=== PATIENT | female | born 1965 | race Caucasian/White ===

== ENCOUNTER 2017-08-14 08:05 | Emergency (ER) | payer MEDICAID ==
[~2017-08-14 08:05] MED LIST: LEVO750T46 PO; NO HOME MEDS; PRED10TA PO
[2017-08-14] MEDS ORDERED: LEVO500T89 PO (18:21)
[2017-08-14] MEDS ORDERED: PRED10TA PO (18:21)
== END 2017-08-14 09:30 | disposition left against medical advice (07) ==
LOC: ER 08:05
DX: Z00.8 Encounter for other general examination (principal); Z53.21 Procedure and treatment not carried out due to patient leaving prior to being seen by health care provider

== ENCOUNTER 2017-09-03 22:19 | Emergency (ER) | payer MEDICAID ==
[~2017-09-03] VITALS: Ht 157.5 cm; Wt 52.0 kg
[2017-09-03 23:31] VITALS: BP 133/83
[2017-09-03] MEDS ORDERED: AZIT250T PO (23:33)
[2017-09-03] MEDS ORDERED: ALBU8.5H8 IH (23:33)
[2017-09-03] MEDS ORDERED: azithromycin 250mg tablet PO ONE (23:35)
== END 2017-09-03 23:54 | disposition home or self-care (01) ==
LOC: ER 22:20
DX: J40 Bronchitis, not specified as acute or chronic (principal); I10 Essential (primary) hypertension; J44.9 Chronic obstructive pulmonary disease, unspecified; K21.9 Gastro-esophageal reflux disease without esophagitis; F17.210 Nicotine dependence, cigarettes, uncomplicated; F12.10 Cannabis abuse, uncomplicated; Z79.899 Other long term (current) drug therapy; Z59.0 Homelessness
CPT/HCPCS: 71045; 93005; 99284

== ENCOUNTER 2017-09-16 03:06 | Emergency (ER) | payer MEDICAID ==
[~2017-09-16] VITALS: Ht 154.9 cm; Wt 50.0 kg
[~2017-09-16 03:06] MED LIST changes: +ALBU8.5H8 IH; +AZIT250T PO
[2017-09-16 03:07] VITALS: BP 91/56
[2017-09-16] MEDS ORDERED: HYDROcodone/acetaminophen 10/325mg tab PO ONE (03:30)
[2017-09-16] MEDS ORDERED: ibuprofen tablet 400 MG TABLET PO ONE (03:50)
== END 2017-09-16 04:15 | disposition home or self-care (01) ==
LOC: ER 03:06
DX: S50.02XA Contusion of left elbow, initial encounter (principal); F10.129 Alcohol abuse with intoxication, unspecified; M54.9 Dorsalgia, unspecified; I10 Essential (primary) hypertension; J44.9 Chronic obstructive pulmonary disease, unspecified; K21.9 Gastro-esophageal reflux disease without esophagitis; Z86.14 Personal history of Methicillin resistant Staphylococcus aureus infection; Z98.890 Other specified postprocedural states; F12.10 Cannabis abuse, uncomplicated; F15.10 Other stimulant abuse, uncomplicated; Z79.899 Other long term (current) drug therapy; Z59.0 Homelessness; W18.30XA Fall on same level, unspecified, initial encounter; Y93.89 Activity, other specified; Y92.009 Unspecified place in unspecified non-institutional (private) residence as the place of occurrence of the external cause; Y99.8 Other external cause status
CPT/HCPCS: 73080; 99284; A4565

== ENCOUNTER 2017-10-08 10:20 | Emergency (ER) | payer MEDICAID ==
[~2017-10-08] VITALS: Ht 157.5 cm; Wt 50.0 kg
[2017-10-08 12:21] VITALS: BP 126/79
== END 2017-10-08 11:57 | disposition home or self-care (01) ==
LOC: ER 10:21
DX: S09.90XA Unspecified injury of head, initial encounter (principal); F12.10 Cannabis abuse, uncomplicated; F15.10 Other stimulant abuse, uncomplicated; J44.9 Chronic obstructive pulmonary disease, unspecified; K21.9 Gastro-esophageal reflux disease without esophagitis; I10 Essential (primary) hypertension; F03.90 Unspecified dementia, unspecified severity, without behavioral disturbance, psychotic disturbance, mood disturbance, and anxiety; Z59.0 Homelessness; Z98.890 Other specified postprocedural states; W22.8XXA Striking against or struck by other objects, initial encounter; Y93.89 Activity, other specified; Y92.89 Other specified places as the place of occurrence of the external cause; Y99.8 Other external cause status
CPT/HCPCS: 70450; 99284; A6446

== ENCOUNTER 2018-02-22 17:49 | Emergency (ER) | payer MEDICAID ==
[~2018-02-22] VITALS: Ht 162.6 cm; Wt 49.0 kg
[2018-02-22] MEDS ORDERED: normal saline 1000ML IV soln IVB ONE (18:00)
[2018-02-22 18:18] LABS: BASOPHILS % (AUTO) 0.6 % (0-1); EOSINOPHILS # (AUTO) 0.1 X10'3 (0-0.9); EOSINOPHILS % (AUTO) 1.3 % (0-6); HEMATOCRIT 29.8 % (35.0-45.0); HEMOGLOBIN 10.2 g/dl (12.0-16.0); LYMPHOCYTES # (AUTO) 2.1 X10'3 (1.1-4.8); LYMPHOCYTES % (AUTO) 45.6 % (21-51); MEAN CORPUSCULAR HGB CONC 34.4 % (33.0-36.5); MEAN PLATELET VOLUME 6.5 FL (7.4-10.4); MONOCYTES # (AUTO) 0.5 X10'3 (0-0.9); NEUTROPHILS # (AUTO) 1.9 X10'3 (1.8-7.7); NEUTROPHILS % (AUTO) 42.5 % (42-75); PLATELET COUNT 168 X10'3 (140-440); RED BLOOD COUNT 2.92 X10'6 (4.20-5.60); RED CELL DISTRIBUTION WIDTH 13.3 % (11.5-14.5); WHITE BLOOD COUNT 4.6 X10'3 (4.5-11.0)
[2018-02-22 18:20] LABS: URINE HCG NEGATIVE (NEG)
[2018-02-22 18:25] LABS: CLARITY,URINE CLEAR (Clear); COLOR,URINE YELLOW (Yellow); GLUCOSE, URINE NEGATIVE (Neg); KETONES,URINE TRACE mg/dl (Neg); LEUKOCYTE ESTERASE ,URINE NEGATIVE (Neg); NITRITES, URINE NEGATIVE (Neg); OCCULT BLOOD,URINE NEGATIVE (Neg); PROTEIN,URINE NEGATIVE (Neg); UROBILINOGEN,URINE 0.2 E.U/dL (0.2-1.0)
[2018-02-22 18:32] LABS: ALANINE AMINOTRANSFERASE 68 U/L (12-78); ALBUMIN 2.3 G/DL (3.4-5.0); ALBUMIN/GLOBULIN RATIO 0.8 (1.1-1.5); ALKALINE PHOSPHATASE 97 IU/L (46-116); ANION GAP 11 (8-16); ASPARTATE AMINO TRANSFERASE 107 U/L (10-37); BILIRUBIN,TOTAL 0.2 MG/DL (0.1-1.0); BLOOD UREA NITROGEN 8 MG/DL (7-18); CALCIUM 7.1 MG/DL (8.5-10.1); CHLORIDE 105 MMOL/L (99-107); CREATININE 0.42 MG/DL (0.40-0.90); GLUCOSE 100 MG/DL (70-104); POTASSIUM 3.3 MMOL/L (3.5-5.1); SODIUM 141 MMOL/L (135-145); TOTAL CARBON DIOXIDE 25.3 MMOL/L (24-32); TOTAL PROTEIN 5.2 G/DL (6.4-8.2); eGFR > 90 ML/MIN
[2018-02-22 18:33] LABS: URINE AMPHETAMINE SCREEN POSITIVE (Neg); URINE BARBITUATE SCREEN NEGATIVE (Neg); URINE BENZODIAZEPINES SCREEN NEGATIVE (Neg); URINE CANNABINOID SCREEN NEGATIVE (Neg); URINE COCAINE SCREEN NEGATIVE (Neg); URINE METHADONE SCREEN NEGATIVE (Neg); URINE OPIATE SCREEN NEGATIVE (Neg); URINE PHENCYCLIDINE SCREEN NEGATIVE (Neg)
[2018-02-22 18:41] LABS: ACETAMINOPHEN < 2.0 UG/ML (10-30); ETHANOL 0.164 GM/DL (0.0-0.010)
[2018-02-22 18:42] LABS: UA COLLECTION TYPE OTHER
[2018-02-22 18:44] VITALS: BP 131/84
[2018-02-22] MEDS ORDERED: DOPamine 400mg/D5W 250ml 250 ML IV SCH (20:20)
== END 2018-02-22 22:07 | disposition home or self-care (01) ==
LOC: ER 17:50
DX: F10.920 Alcohol use, unspecified with intoxication, uncomplicated (principal); R41.82 Altered mental status, unspecified; R73.9 Hyperglycemia, unspecified; F15.10 Other stimulant abuse, uncomplicated; I10 Essential (primary) hypertension; J44.9 Chronic obstructive pulmonary disease, unspecified; F12.90 Cannabis use, unspecified, uncomplicated; F15.90 Other stimulant use, unspecified, uncomplicated; K21.9 Gastro-esophageal reflux disease without esophagitis; Z98.51 Tubal ligation status; Z59.0 Homelessness
CPT/HCPCS: 36415; 70450; 71045; 80053; 80305; 80320; 80329; 81003; 81025; 83930; 84439; 84443; 85025; 93005; 96360; 99285; J7030

== ENCOUNTER 2018-06-29 10:06 | Emergency (ER) | payer MEDICAID ==
[~2018-06-29] VITALS: Ht 160 cm; Wt 47.7 kg
[2018-06-29 10:31] VITALS: BP 157/108
== END 2018-06-29 11:23 | disposition left against medical advice (07) ==
LOC: ER 10:07
DX: R21 Rash and other nonspecific skin eruption (principal); Z53.21 Procedure and treatment not carried out due to patient leaving prior to being seen by health care provider

== ENCOUNTER 2019-01-15 00:15 | Emergency (ER) | payer MEDICAID ==
[~2019-01-15] VITALS: Ht 157.5 cm; Wt 43.8 kg
[~2019-01-15 00:15] MED LIST changes: +DEC4T PO; +LORA10TA65 PO
[2019-01-15 01:15] LABS: HEMOGLOBIN 14.1 g/dl (12.0-16.0); MEAN CORPUSCULAR HEMOGLOBIN 35.5 PG (27.0-31.0); WHITE BLOOD COUNT 6.2 X10'3 (4.5-11.0)
[2019-01-15 01:15] LABS: CLARITY,URINE SLIGHTLY CLOUDY (Clear); COLOR,URINE YELLOW (Yellow); GLUCOSE, URINE NEGATIVE (Neg); KETONES,URINE TRACE mg/dl (Neg); LEUKOCYTE ESTERASE ,URINE NEGATIVE (Neg); NITRITES, URINE NEGATIVE (Neg); OCCULT BLOOD,URINE NEGATIVE (Neg); PH,URINE 5.5 (4.8-8.0); PROTEIN,URINE TRACE mg/dl (Neg); UROBILINOGEN,URINE 0.2 E.U/dL (0.2-1.0)
[2019-01-15 01:17] LABS: UA COLLECTION TYPE CLN CATCH MIDSTREAM
[2019-01-15 01:17] LABS: BASOPHILS # (AUTO) 0.1 X10'3 (0-0.2); BASOPHILS % (AUTO) 0.8 % (0-1); EOSINOPHILS % (AUTO) 0.5 % (0-6); HEMATOCRIT 40.4 % (35.0-45.0); LYMPHOCYTES % (AUTO) 31.9 % (21-51); MEAN CORPUSCULAR HGB CONC 34.9 g/dL (33.0-36.5); MEAN PLATELET VOLUME 6.4 FL (7.4-10.4); MONOCYTES # (AUTO) 0.9 X10'3 (0-0.9); MONOCYTES % (AUTO) 14.5 % (2-12); NEUTROPHILS # (AUTO) 3.3 X10'3 (1.8-7.7); NEUTROPHILS % (AUTO) 52.3 % (42-75); PLATELET COUNT 308 X10'3 (140-440); RED BLOOD COUNT 3.96 X10'6 (4.20-5.60); RED CELL DISTRIBUTION WIDTH 13.2 % (11.5-14.5)
[2019-01-15 01:19] LABS: BACTERIA,URINE FEW /HPF (Neg); MUCUS STRANDS NONE SEEN /LPF (Neg); RBC,URINE NONE SEEN /HPF (0-2); SQUAMOUS EPITHELIAL CELL,UR MODERATE /LPF (FEW); WBC,URINE NONE SEEN /HPF (0-4)
[2019-01-15 01:25] LABS: ALANINE AMINOTRANSFERASE 60 U/L (12-78); ALBUMIN 3.7 G/DL (3.4-5.0); ALKALINE PHOSPHATASE 99 IU/L (46-116); ANION GAP 11 (8-16); ASPARTATE AMINO TRANSFERASE 58 U/L (10-37); BILIRUBIN,TOTAL 0.4 MG/DL (0.1-1.0); BLOOD UREA NITROGEN 16 MG/DL (7-18); BUN/CREATININE RATIO 16.8 (6.6-38.0); CALCIUM 9.2 MG/DL (8.5-10.1); CHLORIDE 100 MMOL/L (99-107); CREATININE 0.95 MG/DL (0.40-0.90); GLUCOSE 116 MG/DL (70-104); SODIUM 139 MMOL/L (135-145); TOTAL CARBON DIOXIDE 28.5 MMOL/L (24-32); TOTAL PROTEIN 7.4 G/DL (6.4-8.2); eGFR 61 ML/MIN
[2019-01-15] MEDS ORDERED: potassium Cl 20 mEq SR tablet PO STA (01:27)
[2019-01-15 01:28] LABS: POTASSIUM 2.9 MMOL/L (3.5-5.1)
[2019-01-15] MEDS ORDERED: ondansetron 4mg rapidly disintigrating tab PO ONE (01:30)
[2019-01-15] MEDS ORDERED: ketorolac trometh inj. 60 MG/2 ML VIAL IM ONE (01:30)
[2019-01-15 01:34] LABS: ETHANOL 0.105 GM/DL (0.0-0.010)
[2019-01-15] MEDS ORDERED: ketorolac trometh. 30mg/ml inj. IM ONE (01:35)
[2019-01-15] MEDS ORDERED: POTA20TA19 PO (01:46)
[2019-01-15 01:56] LABS: URINE AMPHETAMINE SCREEN POSITIVE (Neg); URINE BARBITUATE SCREEN NEGATIVE (Neg); URINE BENZODIAZEPINES SCREEN NEGATIVE (Neg); URINE CANNABINOID SCREEN NEGATIVE (Neg); URINE COCAINE SCREEN NEGATIVE (Neg); URINE METHADONE SCREEN NEGATIVE (Neg); URINE OPIATE SCREEN NEGATIVE (Neg); URINE PHENCYCLIDINE SCREEN NEGATIVE (Neg)
[2019-01-15 04:22] VITALS: BP 166/90
== END 2019-01-15 04:26 | disposition home or self-care (01) ==
LOC: ER 00:16
DX: R10.84 Generalized abdominal pain (principal); E87.6 Hypokalemia; I10 Essential (primary) hypertension; J44.9 Chronic obstructive pulmonary disease, unspecified; K21.9 Gastro-esophageal reflux disease without esophagitis; F12.90 Cannabis use, unspecified, uncomplicated; F15.90 Other stimulant use, unspecified, uncomplicated; Z87.11 Personal history of peptic ulcer disease; Z98.890 Other specified postprocedural states; Z98.51 Tubal ligation status; Z59.0 Homelessness; Z79.899 Other long term (current) drug therapy
CPT/HCPCS: 36415; 74176; 80053; 80305; 80320; 81001; 85025; 85610; 96372; 99284; J1885; J2405

== ENCOUNTER 2019-11-20 22:26 | Emergency (ER) | payer MEDICAID ==
[~2019-11-20] VITALS: Ht 157.5 cm; Wt 52.3 kg
[2019-11-20] MEDS ORDERED: normal saline 1000ML IV soln IVB ONE (22:35)
[2019-11-20] MEDS ORDERED: ondansetron/PF 4mg/2ml inj IV ONE (22:35)
[2019-11-20] MEDS ORDERED: morphine 4 MG/ML inj SYRINge IV PRN (22:35)
[2019-11-20 23:04] LABS: BASOPHILS # (AUTO) 0.1 X10'3 (0-0.2); EOSINOPHILS # (AUTO) 0.1 X10'3 (0-0.9); EOSINOPHILS % (AUTO) 1.3 % (0-6); HEMATOCRIT 38.3 % (35.0-45.0); HEMOGLOBIN 12.7 g/dl (12.0-16.0); LYMPHOCYTES # (AUTO) 2.7 X10'3 (1.1-4.8); LYMPHOCYTES % (AUTO) 43.4 % (21-51); MEAN CORPUSCULAR HEMOGLOBIN 31.6 PG (27.0-31.0); MEAN CORPUSCULAR HGB CONC 33.1 g/dL (33.0-36.5); MEAN CORPUSCULAR VOLUME 95.4 FL (78-98); MEAN PLATELET VOLUME 6.4 FL (7.4-10.4); MONOCYTES # (AUTO) 0.4 X10'3 (0-0.9); MONOCYTES % (AUTO) 6.3 % (2-12); NEUTROPHILS # (AUTO) 2.9 X10'3 (1.8-7.7); PLATELET COUNT 431 X10'3 (140-440); RED BLOOD COUNT 4.02 X10'6 (4.20-5.60); RED CELL DISTRIBUTION WIDTH 15.1 % (11.5-14.5); WHITE BLOOD COUNT 6.1 X10'3 (4.5-11.0)
[2019-11-20 23:11] LABS: ALANINE AMINOTRANSFERASE 24 U/L (12-78); ALBUMIN 2.5 G/DL (3.4-5.0); ALBUMIN/GLOBULIN RATIO 0.6 (1.1-1.5); ALKALINE PHOSPHATASE 97 IU/L (46-116); ANION GAP 9 (8-16); ASPARTATE AMINO TRANSFERASE 23 U/L (10-37); BILIRUBIN,TOTAL 0.2 MG/DL (0.1-1.0); BLOOD UREA NITROGEN 9 MG/DL (7-18); CALCIUM 11.2 MG/DL (8.5-10.1); CHLORIDE 108 MMOL/L (99-107); CREATININE 0.69 MG/DL (0.40-0.90); ETHANOL 0.103 GM/DL (0.0-0.010); GLUCOSE 88 MG/DL (70-104); LIPASE 119 U/L (73-393); POTASSIUM 3.4 MMOL/L (3.5-5.1); SODIUM 146 MMOL/L (135-145); TOTAL CARBON DIOXIDE 29.5 MMOL/L (24-32); TOTAL PROTEIN 6.9 G/DL (6.4-8.2); eGFR 88 ML/MIN
[2019-11-21 00:59] LABS: URINE AMPHETAMINE SCREEN POSITIVE (Neg); URINE BARBITUATE SCREEN NEGATIVE (Neg); URINE BENZODIAZEPINES SCREEN NEGATIVE (Neg); URINE CANNABINOID SCREEN POSITIVE (Neg); URINE COCAINE SCREEN NEGATIVE (Neg); URINE METHADONE SCREEN NEGATIVE (Neg); URINE OPIATE SCREEN POSITIVE (Neg); URINE PHENCYCLIDINE SCREEN NEGATIVE (Neg)
[2019-11-21 01:22] LABS: CLARITY,URINE SLIGHTLY CLOUDY (Clear); COLOR,URINE YELLOW (Yellow); GLUCOSE, URINE NEGATIVE (Neg); KETONES,URINE NEGATIVE (Neg); LEUKOCYTE ESTERASE ,URINE NEGATIVE (Neg); NITRITES, URINE NEGATIVE (Neg); OCCULT BLOOD,URINE NEGATIVE (Neg); PROTEIN,URINE NEGATIVE (Neg); UROBILINOGEN,URINE 0.2 E.U/dL (0.2-1.0)
[2019-11-21 01:33] LABS: MUCUS STRANDS FEW /LPF (Neg); RBC,URINE NONE SEEN /HPF (0-2); SQUAMOUS EPITHELIAL CELL,UR FEW /LPF (FEW); WBC,URINE 0-4 /HPF (0-4)
[2019-11-21 01:34] LABS: BACTERIA,URINE NONE SEEN /HPF (Neg)
[2019-11-21] MEDS ORDERED: HYDROcodone/acetaminophen 5mg/325mg tablet PO STA (01:59)
[2019-11-21 02:04] VITALS: BP 159/100
== END 2019-11-21 02:06 | disposition home or self-care (01) ==
LOC: ER 22:27
DX: R10.11 Right upper quadrant pain (principal); R11.2 Nausea with vomiting, unspecified; R19.7 Diarrhea, unspecified; F15.10 Other stimulant abuse, uncomplicated; F10.920 Alcohol use, unspecified with intoxication, uncomplicated; I10 Essential (primary) hypertension; J45.909 Unspecified asthma, uncomplicated; J44.9 Chronic obstructive pulmonary disease, unspecified; K21.9 Gastro-esophageal reflux disease without esophagitis; F32.9 Major depressive disorder, single episode, unspecified; F12.90 Cannabis use, unspecified, uncomplicated; Z86.19 Personal history of other infectious and parasitic diseases; Z86.69 Personal history of other diseases of the nervous system and sense organs; Z87.01 Personal history of pneumonia (recurrent); Z87.11 Personal history of peptic ulcer disease; Z86.14 Personal history of Methicillin resistant Staphylococcus aureus infection; Z98.51 Tubal ligation status; Z72.89 Other problems related to lifestyle; Z59.0 Homelessness; Z79.2 Long term (current) use of antibiotics; Z79.899 Other long term (current) drug therapy
CPT/HCPCS: 36415; 74176; 80053; 80305; 80320; 81001; 83605; 83690; 85025; 96361; 96374; 96375; 99284; J2270; J2405; J7030

== ENCOUNTER 2020-05-20 09:26 | Emergency (ER) | payer MEDICAID ==
[~2020-05-20] VITALS: Ht 157.5 cm; Wt 50.0 kg
[2020-05-20 09:31] VITALS: BP 176/100
[2020-05-20] MEDS ORDERED: acetaminophen 325mg tablet PO ONE (11:45)
== END 2020-05-20 12:15 | disposition home or self-care (01) ==
LOC: ER 09:26
DX: S83.92XA Sprain of unspecified site of left knee, initial encounter (principal); M25.562 Pain in left knee; X58.XXXA Exposure to other specified factors, initial encounter; Y93.89 Activity, other specified; Y92.89 Other specified places as the place of occurrence of the external cause; Y99.8 Other external cause status
CPT/HCPCS: 73564; 99283

== ENCOUNTER 2020-07-02 08:23 | Emergency (ER) | payer MEDICAID ==
[~2020-07-02] VITALS: Ht 157.5 cm; Wt 50.0 kg
[2020-07-02] MEDS ORDERED: labetalol 20mg/4ml (5mg/ml) syringe IV ONE (08:45)
[2020-07-02] MEDS ORDERED: normal saline 1000ML IV soln IVB ONE (08:45)
[2020-07-02] MEDS ORDERED: ondansetron/PF 4mg/2ml inj IV ONE (08:45)
[2020-07-02 09:06] LABS: CLARITY,URINE SLIGHTLY CLOUDY (Clear); COLOR,URINE STRAW (Yellow); GLUCOSE, URINE NEGATIVE (Neg); KETONES,URINE NEGATIVE (Neg); LEUKOCYTE ESTERASE ,URINE SMALL (Neg); NITRITES, URINE NEGATIVE (Neg); OCCULT BLOOD,URINE NEGATIVE (Neg); PH,URINE 7.5 (4.8-8.0); PROTEIN,URINE NEGATIVE (Neg); URINE HCG NEGATIVE (NEG); UROBILINOGEN,URINE 0.2 E.U/dL (0.2-1.0)
[2020-07-02 09:11] LABS: UA COLLECTION TYPE CLN CATCH MIDSTREAM
[2020-07-02 09:16] LABS: SQUAMOUS EPITHELIAL CELL,UR FEW /LPF (FEW)
--- NOTE | 2020-07-02 09:16 | NUR ---
4 iv attempts dimitrios solitario 2 iv attempts, marilee oden trying 2nd iv attempt with ultrasound.
[2020-07-02 09:18] LABS: BACTERIA,URINE FEW /HPF (Neg); RBC,URINE NONE SEEN /HPF (0-2); WBC,URINE 0-4 /HPF (0-4)
[2020-07-02 09:19] LABS: URINE AMPHETAMINE SCREEN POSITIVE (Neg); URINE BARBITUATE SCREEN NEGATIVE (Neg); URINE BENZODIAZEPINES SCREEN NEGATIVE (Neg); URINE CANNABINOID SCREEN NEGATIVE (Neg); URINE COCAINE SCREEN NEGATIVE (Neg); URINE METHADONE SCREEN NEGATIVE (Neg); URINE OPIATE SCREEN NEGATIVE (Neg); URINE PHENCYCLIDINE SCREEN NEGATIVE (Neg)
--- NOTE | 2020-07-02 09:20 | NUR ---
pt jerked while marilee oden was placing iv, got blood return but no placement.
[2020-07-02 09:25] LABS: ALANINE AMINOTRANSFERASE 21 U/L (12-78); ALBUMIN 3.4 G/DL (3.4-5.0); ALBUMIN/GLOBULIN RATIO 0.9 (1.1-1.5); ALKALINE PHOSPHATASE 88 IU/L (46-116); ANION GAP 7 (8-16); ASPARTATE AMINO TRANSFERASE 26 U/L (10-37); BILIRUBIN,TOTAL 0.1 MG/DL (0.1-1.0); BLOOD UREA NITROGEN 13 MG/DL (7-18); BUN/CREATININE RATIO 18.6 (6.6-38.0); CALCIUM 9.4 MG/DL (8.5-10.1); CHLORIDE 103 MMOL/L (99-107); GLUCOSE 88 MG/DL (70-104); LIPASE 210 U/L (73-393); POTASSIUM 4.3 MMOL/L (3.5-5.1); SODIUM 141 MMOL/L (135-145); TOTAL CARBON DIOXIDE 31.1 MMOL/L (24-32); eGFR 87 ML/MIN
[2020-07-02] MEDS: morphine 4 MG/ML inj SYRINge IV PRN ×2 (09:33→10:03)
--- NOTE | 2020-07-02 09:39 | NUR ---
PT DENIES USING METH FOR YEARS.
[2020-07-02 09:44] LABS: BASOPHILS # (AUTO) 0.1 X10'3 (0-0.2); BASOPHILS % (AUTO) 0.8 % (0-1); EOSINOPHILS # (AUTO) 0.1 X10'3 (0-0.9); EOSINOPHILS % (AUTO) 1.4 % (0-6); HEMATOCRIT 40.1 % (35.0-45.0); HEMOGLOBIN 13.5 g/dl (12.0-16.0); LYMPHOCYTES # (AUTO) 2.1 X10'3 (1.1-4.8); LYMPHOCYTES % (AUTO) 25.1 % (21-51); MEAN CORPUSCULAR HGB CONC 33.8 g/dL (33.0-36.5); MEAN CORPUSCULAR VOLUME 97.6 FL (78-98); MEAN PLATELET VOLUME 6.6 FL (7.4-10.4); MONOCYTES # (AUTO) 0.7 X10'3 (0-0.9); MONOCYTES % (AUTO) 9.1 % (2-12); NEUTROPHILS # (AUTO) 5.2 X10'3 (1.8-7.7); NEUTROPHILS % (AUTO) 63.6 % (42-75); PLATELET COUNT 424 X10'3 (140-440); RED CELL DISTRIBUTION WIDTH 14.2 % (11.5-14.5); WHITE BLOOD COUNT 8.2 X10'3 (4.5-11.0)
[2020-07-02] MEDS ORDERED: SUCR1TAB34 PO (11:20)
[2020-07-02 11:40] VITALS: BP 121/74
== END 2020-07-02 11:42 | disposition home or self-care (01) ==
LOC: ER 08:24
DX: K59.09 Other constipation (principal); K59.00 Constipation, unspecified; R10.10 Upper abdominal pain, unspecified; F03.90 Unspecified dementia, unspecified severity, without behavioral disturbance, psychotic disturbance, mood disturbance, and anxiety; F12.90 Cannabis use, unspecified, uncomplicated; F15.90 Other stimulant use, unspecified, uncomplicated; I10 Essential (primary) hypertension; J44.9 Chronic obstructive pulmonary disease, unspecified; K21.9 Gastro-esophageal reflux disease without esophagitis; Z87.11 Personal history of peptic ulcer disease; Z86.14 Personal history of Methicillin resistant Staphylococcus aureus infection; Z87.01 Personal history of pneumonia (recurrent); Z98.51 Tubal ligation status; Z98.891 History of uterine scar from previous surgery; Z59.0 Homelessness; Z86.69 Personal history of other diseases of the nervous system and sense organs; Z79.2 Long term (current) use of antibiotics; Z79.899 Other long term (current) drug therapy
CPT/HCPCS: 36415; 71045; 74176; 80053; 80305; 81001; 81025; 83690; 85025; 87088; 96361; 96374; 96375; 99285; J2270; J2405; J7030; 96376; J3490

== ENCOUNTER 2020-10-05 21:01 | Inpatient (IN) | payer MEDICAID ==
[~2020-10-05] VITALS: Ht 157.5 cm; Wt 50.0 kg
[~2020-10-05 21:01] MED LIST changes: +SUCR1TAB34 PO
[2020-10-05 21:25] LABS: BASOPHILS % (AUTO) 0.1 % (0-1); EOSINOPHILS % (AUTO) 0.2 % (0-6); HEMATOCRIT 37.1 % (35.0-45.0); HEMOGLOBIN 12.6 g/dl (12.0-16.0); LYMPHOCYTES # (AUTO) 1.3 X10'3 (1.1-4.8); LYMPHOCYTES % (AUTO) 6.9 % (21-51); MEAN CORPUSCULAR HEMOGLOBIN 33.3 PG (27.0-31.0); MEAN CORPUSCULAR HGB CONC 33.9 g/dL (33.0-36.5); MEAN CORPUSCULAR VOLUME 98.2 FL (78-98); MEAN PLATELET VOLUME 6.3 FL (7.4-10.4); MONOCYTES # (AUTO) 1.6 X10'3 (0-0.9); MONOCYTES % (AUTO) 8.9 % (2-12); NEUTROPHILS # (AUTO) 15.5 X10'3 (1.8-7.7); NEUTROPHILS % (AUTO) 83.9 % (42-75); PLATELET COUNT 305 X10'3 (140-440); RED BLOOD COUNT 3.78 X10'6 (4.20-5.60); RED CELL DISTRIBUTION WIDTH 13.4 % (11.5-14.5); WHITE BLOOD COUNT 18.5 X10'3 (4.5-11.0)
[2020-10-05 21:36] LABS: ALANINE AMINOTRANSFERASE 18 U/L (12-78); ALBUMIN 2.7 G/DL (3.4-5.0); ALBUMIN/GLOBULIN RATIO 0.8 (1.1-1.5); ALKALINE PHOSPHATASE 87 IU/L (46-116); ANION GAP 7 (8-16); ASPARTATE AMINO TRANSFERASE 21 U/L (10-37); BILIRUBIN,TOTAL 0.8 MG/DL (0.1-1.0); BLOOD UREA NITROGEN 16 MG/DL (7-18); BUN/CREATININE RATIO 25.8 (6.6-38.0); CALCIUM 8.9 MG/DL (8.5-10.1); CHLORIDE 96 MMOL/L (99-107); CREATININE 0.62 MG/DL (0.40-0.90); GLUCOSE 95 MG/DL (70-104); POTASSIUM 3.4 MMOL/L (3.5-5.1); SODIUM 130 MMOL/L (135-145); TOTAL CARBON DIOXIDE 26.6 MMOL/L (24-32); TOTAL PROTEIN 6.2 G/DL (6.4-8.2); eGFR > 90 ML/MIN
[2020-10-05] MEDS ORDERED: CefTRIAXone/D5W-Rocephin 1gm 50 ML IV ONE (22:20)
[2020-10-05] MEDS ORDERED: doxycycline inj 100 MG in normal saline 100ml IV soln 100 ML IV ONE (22:23)
[2020-10-05] MEDS ORDERED: oxyCODONE/APAP 5-325mg tablet PO ONE (22:25)
[2020-10-05] MEDS ORDERED: iohexol 350MG/ML 100ml bottle IV ONE (22:27)
[2020-10-05] MEDS ORDERED: potassium Cl 40MEQ/1/2NS 520ml 520 ML IV PRN ×2 (23:40)
[2020-10-05] MEDS ORDERED: mag hydrox/Alum hydrox/simeth 30ml oral suspension PO PRN (23:40)
[2020-10-05] MEDS ORDERED: potassium Cl 20 mEq SR tablet PO PRN (23:40)
[2020-10-05] MEDS ORDERED: magnesium hydroxide 30ml (MOM) UD suspension PO PRN (23:40)
[2020-10-05] MEDS ORDERED: ondansetron/PF 4mg/2ml inj IV PRN (23:40)
[2020-10-05] MEDS ORDERED: acetaminophen 325mg tablet PO PRN (23:40)
[2020-10-06] MEDS ORDERED: normal saline 1000ml 1,000 ML IV ONE ×2 (00:10)
--- NOTE | 2020-10-06 01:45 | NUR ---
received report from ED Nurse on pt. at approx. 0115. patient arrived on unit at 0135 in a wheelchair escorted by [employer] wearing personal clothing as well as a purse. Chun Wyatt RN
[2020-10-06 01:57] LABS: BASOPHILS # (AUTO) 0.1 X10'3 (0-0.2); BASOPHILS % (AUTO) 0.3 % (0-1); EOSINOPHILS % (AUTO) 0.1 % (0-6); HEMATOCRIT 39.1 % (35.0-45.0); HEMOGLOBIN 13.3 g/dl (12.0-16.0); LYMPHOCYTES # (AUTO) 1.4 X10'3 (1.1-4.8); LYMPHOCYTES % (AUTO) 6.8 % (21-51); MEAN CORPUSCULAR HEMOGLOBIN 33.1 PG (27.0-31.0); MEAN CORPUSCULAR VOLUME 97.4 FL (78-98); MEAN PLATELET VOLUME 6.5 FL (7.4-10.4); MONOCYTES # (AUTO) 1.2 X10'3 (0-0.9); MONOCYTES % (AUTO) 5.5 % (2-12); NEUTROPHILS # (AUTO) 18.4 X10'3 (1.8-7.7); NEUTROPHILS % (AUTO) 87.3 % (42-75); PLATELET COUNT 333 X10'3 (140-440); RED BLOOD COUNT 4.01 X10'6 (4.20-5.60); RED CELL DISTRIBUTION WIDTH 13.6 % (11.5-14.5)
[2020-10-06 02:07] LABS: ALANINE AMINOTRANSFERASE 18 U/L (12-78); ALBUMIN 2.8 G/DL (3.4-5.0); ALBUMIN/GLOBULIN RATIO 0.8 (1.1-1.5); ALKALINE PHOSPHATASE 100 IU/L (46-116); ANION GAP 10 (8-16); ASPARTATE AMINO TRANSFERASE 20 U/L (10-37); BILIRUBIN,TOTAL 0.6 MG/DL (0.1-1.0); BLOOD UREA NITROGEN 16 MG/DL (7-18); BUN/CREATININE RATIO 26.2 (6.6-38.0); CALCIUM 8.8 MG/DL (8.5-10.1); CHLORIDE 100 MMOL/L (99-107); CREATININE 0.61 MG/DL (0.40-0.90); GLUCOSE 106 MG/DL (70-104); POTASSIUM 3.2 MMOL/L (3.5-5.1); SODIUM 136 MMOL/L (135-145); TOTAL CARBON DIOXIDE 26.2 MMOL/L (24-32); TOTAL PROTEIN 6.5 G/DL (6.4-8.2); eGFR > 90 ML/MIN
[2020-10-06] MEDS: HYDROcodone/acetaminophen 5mg/325mg tablet PO PRN ×5 (02:41→22:12)
[2020-10-06] MEDS: normal saline 1000ml 1,000 ML IV SCH ×2 (02:43→09:40)
[2020-10-06] MEDS: potassium Cl 20 mEq SR tablet PO PRN ×3 (02:52→18:07)
[2020-10-06] MEDS: clindamycin 300mg/D5W 50mL 50 ML IV SCH ×4 (03:02→21:02)
[2020-10-06 03:26] LABS: TOTAL CELLS COUNTED 100
[2020-10-06 03:27] LABS: PLATELET ESTIMATE NORMAL; SCHISTOCYTES FEW
--- NOTE | 2020-10-06 06:37 | NUR ---
I agree with ARELIS Mccollum assessments, documentation, med pass, and report given. Report was given to Brian Mendez RN
--- NOTE | 2020-10-06 06:46 | NUR ---
Patient in room [facility]. I have received report from ARELIS Ordaz and had the opportunity to ask questions and assume patient care.
[2020-10-06 07:00] VITALS: BP 133/72
[2020-10-06] MEDS: heparin, porcine 5000 units/ml vial SQ SCH ×2 (07:14→21:04)
[2020-10-06] MEDS ORDERED: NO HOME MEDS (07:44)
[2020-10-06] MEDS: K and/or MAG REPLACEMENT MC SCH ×2 (08:00→20:00)
[2020-10-06] MEDS: CefTRIAXone/D5W-Rocephin 1gm 50 ML IV SCH (08:04)
--- NOTE | 2020-10-06 11:50 | NUR ---
Notified by service unit operator oil well Candice that patient states she "suppose to take her pills for her cirrhosis of liver." No home meds reported on med rec. Went to speak to patient and patient reports she takes medication at home for her cirrhosis. She reports that she was "here like 3 months ago and you guys sent me home with it. I don't have it with me but it's these big pills I take with an empty stomach for before I eat." With patient's permission to access most recent hospital visit it show that patient was here for abd pain in Jun and was discharged in the ER with Sucralfate (Carafate) 1 Gm Tablet 1 TAB PO ACHS, #60 TAB 0 Refills Prov: MAYCOL DUTTON MD. Patient is notified that was the only medication ordered when she was dc'd from the ER her previous visit. Patient reports that she was "suppose to follow up with [facility]" but didn't." Let patient know that I will update Dr. Dewitt with information regarding this.
[2020-10-06 12:00] VITALS: BP 171/87
--- NOTE | 2020-10-06 12:22 | NUR ---
Dr Dewitt PAGER ID: [phone] MESSAGE: [id number]- Gina Gomez- says she takes meds for liver cirrhosis that was ordered her last hosp. visit. She had ER visit for abd pain in Jun and dc'd from ER with Sucralfate 1 Gm TAB PO ACHS, #60 TAB 0 Refills. Do you want ordered? Meme [id number] Cuong
--- NOTE | 2020-10-06 15:01 | NUR ---
Malnutrition consult: Pt unsure of wt loss though reports decreased appetite per malnutrition risk screen with RN. Pt currently on a regular diet, pending documentation of PO intake. Patient's current documented wt is stable with wt hx in EMR. Pt with no documented significant decrease in muscle strength or edema. Pt appears well developed well nourished per ED report. Pt currently lacks a minimum of two criteria for malnutrition. Will continue to follow and further monitor qualifying criteria for malnutrition. Addendum: 10/06/20 at [address] Amended: Links added.
[2020-10-06] MEDS: azithromycin/NS 500mg/250ml 250 ML IV SCH (16:10)
[2020-10-06] MEDS: morphine 2 MG/ML inj. syringe IV PRN (16:26)
--- NOTE | 2020-10-06 18:38 | NUR ---
Problems reprioritized. Patient report given, questions answered & plan of care reviewed with ARELIS Brush.
[2020-10-06 19:00] VITALS: BP 127/70
[2020-10-06] MEDS: lactobacillus rhamnosus 10,000 MMU CELLS/CAPSULE PO SCH (21:02)
[2020-10-07] VITALS: BP 128/70
[2020-10-07] MEDS: clindamycin 300mg/D5W 50mL 50 ML IV SCH ×4 (01:39→19:18)
[2020-10-07] MEDS: normal saline 1000ml 1,000 ML IV SCH (01:42)
--- NOTE | 2020-10-07 02:00 | NUR ---
Patient in room [facility]. I have received report from Trudi INFANTE and had the opportunity to ask questions and assume patient care.
--- NOTE | 2020-10-07 02:40 | NUR ---
I have reviewed and agree with the assessment preformed by Trudi INFANTE
[2020-10-07] MEDS: HYDROcodone/acetaminophen 5mg/325mg tablet PO PRN ×4 (02:46→19:19)
[2020-10-07 05:46] LABS: BASOPHILS % (AUTO) 0.3 % (0-1); EOSINOPHILS # (AUTO) 0.1 X10'3 (0-0.9); EOSINOPHILS % (AUTO) 0.4 % (0-6); HEMOGLOBIN 12.4 g/dl (12.0-16.0); LYMPHOCYTES # (AUTO) 1.8 X10'3 (1.1-4.8); LYMPHOCYTES % (AUTO) 11.9 % (21-51); MEAN CORPUSCULAR HEMOGLOBIN 33.2 PG (27.0-31.0); MEAN CORPUSCULAR HGB CONC 33.4 g/dL (33.0-36.5); MEAN CORPUSCULAR VOLUME 99.5 FL (78-98); MEAN PLATELET VOLUME 7.5 FL (7.4-10.4); MONOCYTES # (AUTO) 0.7 X10'3 (0-0.9); MONOCYTES % (AUTO) 4.6 % (2-12); NEUTROPHILS # (AUTO) 12.6 X10'3 (1.8-7.7); NEUTROPHILS % (AUTO) 82.8 % (42-75); PLATELET COUNT 320 X10'3 (140-440); RED BLOOD COUNT 3.72 X10'6 (4.20-5.60); RED CELL DISTRIBUTION WIDTH 13.6 % (11.5-14.5); WHITE BLOOD COUNT 15.2 X10'3 (4.5-11.0)
[2020-10-07 06:17] LABS: ALANINE AMINOTRANSFERASE 18 U/L (12-78); ALBUMIN 2.2 G/DL (3.4-5.0); ALBUMIN/GLOBULIN RATIO 0.6 (1.1-1.5); ALKALINE PHOSPHATASE 91 IU/L (46-116); ANION GAP 10 (8-16); ASPARTATE AMINO TRANSFERASE 14 U/L (10-37); BILIRUBIN,TOTAL 0.3 MG/DL (0.1-1.0); BLOOD UREA NITROGEN 7 MG/DL (7-18); BUN/CREATININE RATIO 13.2 (6.6-38.0); CALCIUM 9.3 MG/DL (8.5-10.1); CHLORIDE 106 MMOL/L (99-107); CREATININE 0.53 MG/DL (0.40-0.90); GLUCOSE 87 MG/DL (70-104); POTASSIUM 4.4 MMOL/L (3.5-5.1); SODIUM 143 MMOL/L (135-145); TOTAL CARBON DIOXIDE 27.5 MMOL/L (24-32); TOTAL PROTEIN 6.1 G/DL (6.4-8.2); eGFR > 90 ML/MIN
--- NOTE | 2020-10-07 06:27 | NUR ---
Problems reprioritized. Patient report given, questions answered & plan of care reviewed with Meme INFANTE with Luis INFANTE.
[2020-10-07 07:00] VITALS: BP 135/76
--- NOTE | 2020-10-07 07:00 | NUR ---
Patient in room [facility] 355. I have received report from ARELIS Richards and had the opportunity to ask questions and assume patient care.
[2020-10-07] MEDS: lactobacillus rhamnosus 10,000 MMU CELLS/CAPSULE PO SCH ×2 (07:44→19:18)
[2020-10-07] MEDS: K and/or MAG REPLACEMENT MC SCH ×2 (08:00→20:00)
[2020-10-07] MEDS: heparin, porcine 5000 units/ml vial SQ SCH ×2 (08:07→19:19)
[2020-10-07] MEDS: CefTRIAXone/D5W-Rocephin 1gm 50 ML IV SCH (08:50)
[2020-10-07] MEDS: azithromycin/NS 500mg/250ml 250 ML IV SCH (09:35)
--- NOTE | 2020-10-07 09:56 | NUR ---
PAGER ID: [phone] MESSAGE: Luis Bedolla [id number] - Maria Esther Ramirez - Patient requesting a breathing treatment. SOB and wheezy, can we have an order? Thank you.
[2020-10-07 11:00] VITALS: BP 119/68
[2020-10-07] MEDS: morphine 2 MG/ML inj. syringe IV PRN (15:41)
[2020-10-07] MEDS ORDERED: albuterol 2.5 MG/3 ML nebule NEB PRN (15:50)
[2020-10-07 18:00] VITALS: BP 138/75
--- NOTE | 2020-10-07 18:38 | NUR ---
Problems reprioritized. Patient report given, questions answered & plan of care reviewed with ARELIS Richards.
--- NOTE | 2020-10-07 20:30 | NUR ---
Problems reprioritized. Patient report given, questions answered & plan of care reviewed with Paulie INFANTE.
--- NOTE | 2020-10-07 20:41 | NUR ---
Patient in room [facility]. I have received report from Susie INFANTE and had the opportunity to ask questions and assume patient care.
[2020-10-08] VITALS: BP 144/76
[2020-10-08] MEDS: HYDROcodone/acetaminophen 5mg/325mg tablet PO PRN ×4 (00:04→14:46)
[2020-10-08] MEDS: clindamycin 300mg/D5W 50mL 50 ML IV SCH ×3 (02:10→14:00)
[2020-10-08 06:51] LABS: BASOPHILS % (AUTO) 0.2 % (0-1); EOSINOPHILS # (AUTO) 0.1 X10'3 (0-0.9); EOSINOPHILS % (AUTO) 0.5 % (0-6); HEMATOCRIT 38.4 % (35.0-45.0); HEMOGLOBIN 12.9 g/dl (12.0-16.0); LYMPHOCYTES # (AUTO) 1.8 X10'3 (1.1-4.8); LYMPHOCYTES % (AUTO) 16.8 % (21-51); MEAN CORPUSCULAR HEMOGLOBIN 33.5 PG (27.0-31.0); MEAN CORPUSCULAR HGB CONC 33.6 g/dL (33.0-36.5); MEAN CORPUSCULAR VOLUME 99.8 FL (78-98); MEAN PLATELET VOLUME 7.3 FL (7.4-10.4); MONOCYTES # (AUTO) 0.8 X10'3 (0-0.9); MONOCYTES % (AUTO) 6.9 % (2-12); NEUTROPHILS # (AUTO) 8.3 X10'3 (1.8-7.7); NEUTROPHILS % (AUTO) 75.6 % (42-75); PLATELET COUNT 374 X10'3 (140-440); RED BLOOD COUNT 3.84 X10'6 (4.20-5.60); RED CELL DISTRIBUTION WIDTH 13.4 % (11.5-14.5)
[2020-10-08] MEDS: normal saline 1000ml 1,000 ML IV SCH (06:56)
[2020-10-08 07:04] LABS: ALANINE AMINOTRANSFERASE 16 U/L (12-78); ALBUMIN 2.2 G/DL (3.4-5.0); ALBUMIN/GLOBULIN RATIO 0.5 (1.1-1.5); ALKALINE PHOSPHATASE 106 IU/L (46-116); ANION GAP 9 (8-16); ASPARTATE AMINO TRANSFERASE 15 U/L (10-37); BILIRUBIN,TOTAL 0.3 MG/DL (0.1-1.0); BLOOD UREA NITROGEN 6 MG/DL (7-18); CALCIUM 9.3 MG/DL (8.5-10.1); CHLORIDE 103 MMOL/L (99-107); CREATININE 0.43 MG/DL (0.40-0.90); GLUCOSE 88 MG/DL (70-104); POTASSIUM 3.8 MMOL/L (3.5-5.1); SODIUM 138 MMOL/L (135-145); TOTAL CARBON DIOXIDE 26.5 MMOL/L (24-32); TOTAL PROTEIN 6.5 G/DL (6.4-8.2); eGFR > 90 ML/MIN
--- NOTE | 2020-10-08 07:24 | NUR ---
Problems reprioritized. Patient report given, questions answered & plan of care reviewed with Cristopher INFANTE.
[2020-10-08 08:00] VITALS: BP 179/96
[2020-10-08] MEDS: heparin, porcine 5000 units/ml vial SQ SCH (08:00)
[2020-10-08] MEDS: K and/or MAG REPLACEMENT MC SCH (08:00)
[2020-10-08] MEDS: lactobacillus rhamnosus 10,000 MMU CELLS/CAPSULE PO SCH (08:04)
[2020-10-08] MEDS: CefTRIAXone/D5W-Rocephin 1gm 50 ML IV SCH (10:17)
[2020-10-08 11:00] VITALS: BP 166/94
[2020-10-08] MEDS: azithromycin/NS 500mg/250ml 250 ML IV SCH (11:16)
[2020-10-08] MEDS ORDERED: HYDR-3965 PO (13:06)
[2020-10-08] MEDS ORDERED: LEVO750T46 PO (13:06)
[2020-10-08] MEDS ORDERED: ALBU8.5H8 INH (13:06)
== END 2020-10-08 16:22 | disposition home or self-care (01) | DRG 720 ==
LOC: ER 21:02 → ED HOLD 23:36 → SUR 3N 10-06 00:30
PROVIDERS: ADMIT Internal Medicine; ATTEND Internal Medicine
PROC: B32T1ZZ Computerized Tomography (CT Scan) of Left Pulmonary Artery using Low Osmolar Contrast (ICD-10-PCS; principal; 2020-10-06)
PROC: B3201ZZ Computerized Tomography (CT Scan) of Thoracic Aorta using Low Osmolar Contrast (ICD-10-PCS; 2020-10-06)
PROC: B32S1ZZ Computerized Tomography (CT Scan) of Right Pulmonary Artery using Low Osmolar Contrast (ICD-10-PCS; 2020-10-06)
DX: A41.9 Sepsis, unspecified organism (principal); E43 Unspecified severe protein-calorie malnutrition; J18.9 Pneumonia, unspecified organism; E87.6 Hypokalemia; F03.90 Unspecified dementia, unspecified severity, without behavioral disturbance, psychotic disturbance, mood disturbance, and anxiety; F17.200 Nicotine dependence, unspecified, uncomplicated; I10 Essential (primary) hypertension; J44.0 Chronic obstructive pulmonary disease with (acute) lower respiratory infection; Z20.822 Contact with and (suspected) exposure to COVID-19; B19.20 Unspecified viral hepatitis C without hepatic coma; F12.90 Cannabis use, unspecified, uncomplicated; F32.9 Major depressive disorder, single episode, unspecified; K21.9 Gastro-esophageal reflux disease without esophagitis; Z68.20 Body mass index [BMI] 20.0-20.9, adult; Z79.899 Other long term (current) drug therapy; Z87.11 Personal history of peptic ulcer disease; Z98.891 History of uterine scar from previous surgery; Z98.51 Tubal ligation status; Z59.0 Homelessness
CPT/HCPCS: 36415; 71045; 71275; 80053; 83605; 83880; 84145; 84484; 85007; 85025; 87040; 87081; 87635; 93005; 94640; 94667; 94760; 96365; 97116; 97161; 97530; 99285; C9803; G0378; J0456; J0696; J1644; J2270; J3490; J7030; Q9967

== ENCOUNTER 2021-12-15 23:11 | Emergency (ER) | payer MEDICAID ==
[~2021-12-15] VITALS: Ht 157.5 cm; Wt 50.0 kg
[~2021-12-15 23:11] MED LIST changes: +ALBU8.5H17 INH; -ALBU8.5H8 IH; -AZIT250T PO; -DEC4T PO; -LEVO750T46 PO; -LORA10TA65 PO; -NO HOME MEDS; -PRED10TA PO; -SUCR1TAB34 PO
[2021-12-15 23:31] VITALS: BP 159/88
[2021-12-16] MEDS ORDERED: acetaminophen 325mg tablet PO ONE (00:55)
[2021-12-16] MEDS ORDERED: ibuprofen tablet 400 MG TABLET PO ONE (00:55)
[2021-12-16] MEDS ORDERED: ACET650T58 PO (01:54)
== END 2021-12-16 11:25 | disposition home or self-care (01) ==
LOC: ER 23:12
DX: S99.912A Unspecified injury of left ankle, initial encounter (principal); I10 Essential (primary) hypertension; J44.9 Chronic obstructive pulmonary disease, unspecified; K21.9 Gastro-esophageal reflux disease without esophagitis; F12.90 Cannabis use, unspecified, uncomplicated; F15.20 Other stimulant dependence, uncomplicated; Z98.890 Other specified postprocedural states; Z98.51 Tubal ligation status; Z59.00 Homelessness unspecified; W18.40XA Slipping, tripping and stumbling without falling, unspecified, initial encounter; Y93.89 Activity, other specified; Y92.89 Other specified places as the place of occurrence of the external cause; Y99.8 Other external cause status
CPT/HCPCS: 73610; 73630; 99284

== ENCOUNTER 2022-06-06 11:35 | Emergency (ER) | payer MEDICAID ==
[~2022-06-06] VITALS: Ht 157.5 cm; Wt 46.6 kg
[2022-06-06 12:18] LABS: BASOPHILS % (AUTO) 0.3 % (0-1); EOSINOPHILS % (AUTO) 0.5 % (0-6); HEMATOCRIT 46.3 % (35.0-45.0); HEMOGLOBIN 15.6 g/dl (12.0-16.0); LYMPHOCYTES # (AUTO) 1.6 X10'3 (1.1-4.8); MEAN CORPUSCULAR HEMOGLOBIN 33.3 PG (27.0-31.0); MEAN CORPUSCULAR HGB CONC 33.6 g/dL (33.0-36.5); MEAN PLATELET VOLUME 6.8 FL (7.4-10.4); MONOCYTES # (AUTO) 0.9 X10'3 (0-0.9); NEUTROPHILS % (AUTO) 70.2 % (42-75); PLATELET COUNT 404 X10'3 (140-440); RED BLOOD COUNT 4.68 X10'6 (4.20-5.60); RED CELL DISTRIBUTION WIDTH 12.9 % (11.5-14.5); WHITE BLOOD COUNT 8.5 X10'3 (4.5-11.0)
[2022-06-06 12:30] LABS: ALANINE AMINOTRANSFERASE 24 U/L (12-78); ALBUMIN 3.8 G/DL (3.4-5.0); ALBUMIN/GLOBULIN RATIO 1.1 (1.1-1.5); ALKALINE PHOSPHATASE 121 IU/L (46-116); ANION GAP 9 (8-16); ASPARTATE AMINO TRANSFERASE 21 U/L (10-37); BILIRUBIN,TOTAL 0.4 MG/DL (0.1-1.0); BLOOD UREA NITROGEN 11 MG/DL (7-18); BUN/CREATININE RATIO 13.4 (6.6-38.0); CHLORIDE 99 MMOL/L (99-107); CREATININE 0.82 MG/DL (0.40-0.90); GLUCOSE 131 MG/DL (70-104); LIPASE 54 U/L (73-393); POTASSIUM 3.7 MMOL/L (3.5-5.1); SODIUM 136 MMOL/L (135-145); TOTAL CARBON DIOXIDE 28.2 MMOL/L (24-32); TOTAL PROTEIN 7.4 G/DL (6.4-8.2); eGFR 72 ML/MIN
[2022-06-06] MEDS ORDERED: ondansetron 4mg rapidly disintigrating tab PO ONE (14:10)
[2022-06-06] MEDS ORDERED: pantoprazole 40mg Tablet.DR PO ONE (14:10)
[2022-06-06] MEDS ORDERED: mag hydrox/Alum hydrox/simeth 30ml oral suspension PO ONE (14:10)
[2022-06-06] MEDS ORDERED: famotidine 20mg tablet PO ONE (14:10)
[2022-06-06] MEDS ORDERED: LIDOcaine Viscous 15ml cup MM ONE (14:10)
[2022-06-06 14:38] LABS: CLARITY,URINE CLOUDY (Clear); COLOR,URINE YELLOW (Yellow); GLUCOSE, URINE NEGATIVE (Neg); KETONES,URINE NEGATIVE (Neg); LEUKOCYTE ESTERASE ,URINE TRACE (Neg); NITRITES, URINE NEGATIVE (Neg); OCCULT BLOOD,URINE NEGATIVE (Neg); PH,URINE 8.5 (4.8-8.0); PROTEIN,URINE 30 mg/dl (Neg); UROBILINOGEN,URINE 0.2 E.U/dL (0.2-1.0)
[2022-06-06] MEDS ORDERED: PANT20TA18 PO (14:50)
[2022-06-06 14:51] LABS: UA COLLECTION TYPE CLN CATCH MIDSTREAM
[2022-06-06 15:08] VITALS: BP 138/79
[2022-06-06 15:24] LABS: SQUAMOUS EPITHELIAL CELL,UR MODERATE /LPF (FEW)
[2022-06-06 15:26] LABS: BACTERIA,URINE 1+ /HPF (Neg); RBC,URINE 0-2 /HPF (0-2); WBC,URINE 0-4 /HPF (0-4)
== END 2022-06-06 15:11 | disposition home or self-care (01) ==
LOC: ER 11:35
DX: K21.9 Gastro-esophageal reflux disease without esophagitis (principal); R10.13 Epigastric pain; I10 Essential (primary) hypertension; J44.9 Chronic obstructive pulmonary disease, unspecified; F12.90 Cannabis use, unspecified, uncomplicated; F15.20 Other stimulant dependence, uncomplicated; Z98.51 Tubal ligation status; Z59.00 Homelessness unspecified
CPT/HCPCS: 36415; 80053; 81001; 83690; 85025; 87088; 99284

== ENCOUNTER 2023-10-30 09:18 | Outpatient (CLI) | payer MEDICAID ==
[~2023-10-30 09:18] MED LIST changes: +PANT20TA18 PO
== END 2023-10-30 23:59 | disposition home or self-care (01) ==
LOC: RAD 09:18
PROVIDERS: ATTEND Nurse Practitioner Pediatrics
DX: Z12.2 Encounter for screening for malignant neoplasm of respiratory organs (principal); J43.2 Centrilobular emphysema; I25.10 Atherosclerotic heart disease of native coronary artery without angina pectoris; I51.7 Cardiomegaly; J98.11 Atelectasis; R91.1 Solitary pulmonary nodule; Z87.891 Personal history of nicotine dependence
CPT/HCPCS: 71271

== ENCOUNTER 2023-11-05 09:26 | Outpatient (CLI) | payer MEDICAID | END 2023-11-05 23:59 | disposition home or self-care (01) | LOC: RAD 09:26 | PROVIDERS: ATTEND Nurse Practitioner Pediatrics | DX: Z12.2 Encounter for screening for malignant neoplasm of respiratory organs (principal); J43.2 Centrilobular emphysema; R91.1 Solitary pulmonary nodule; I25.10 Atherosclerotic heart disease of native coronary artery without angina pectoris; I51.7 Cardiomegaly; J98.11 Atelectasis; F17.210 Nicotine dependence, cigarettes, uncomplicated | CPT/HCPCS: 71271 ==

== ENCOUNTER 2024-01-19 08:39 | Emergency (ER) | payer MEDICAID ==
[~2024-01-19] VITALS: Ht 157.5 cm; Wt 54.4 kg
[2024-01-19 10:00] VITALS: BP 143/70; PULSE 98; RESP 18; TEMP 97.8; O2SAT 98
== END 2024-01-19 10:03 | disposition home or self-care (01) ==
LOC: ER 08:39
DX: S50.02XA Contusion of left elbow, initial encounter (principal); I10 Essential (primary) hypertension; J44.9 Chronic obstructive pulmonary disease, unspecified; K21.9 Gastro-esophageal reflux disease without esophagitis; F12.90 Cannabis use, unspecified, uncomplicated; F15.90 Other stimulant use, unspecified, uncomplicated; Z79.899 Other long term (current) drug therapy; Z98.890 Other specified postprocedural states; W19.XXXA Unspecified fall, initial encounter; Y93.89 Activity, other specified; Y92.89 Other specified places as the place of occurrence of the external cause; Y99.8 Other external cause status
CPT/HCPCS: 73080; 99283

== ENCOUNTER 2024-03-09 00:31 | Emergency (ER) | payer MEDICAID ==
[~2024-03-09] VITALS: Ht 152.4 cm; Wt 44.6 kg
[2024-03-09] MEDS ORDERED: TRAM50TA2 PO (03:22)
[2024-03-09] MEDS ORDERED: LIDO700A32 TOP (03:22)
[2024-03-09] MEDS: orphenadrine citrate 60mg/2ml inj. IM ONE (03:35)
[2024-03-09] MEDS: ketorolac trometh 15mg/ml vial 15 MG/ML ML IM ONE (03:36)
[2024-03-09] MEDS: acetaminophen 325mg tablet PO ONE (03:37)
[2024-03-09] MEDS: LIDOcaine 5% patch TP ONE (03:37)
[2024-03-09 03:49] VITALS: BP 170/84; PULSE 105; RESP 14; TEMP 99.1; O2SAT 94
== END 2024-03-09 03:51 | disposition home or self-care (01) ==
LOC: ER 00:32
DX: M54.50 Low back pain, unspecified (principal); F03.90 Unspecified dementia, unspecified severity, without behavioral disturbance, psychotic disturbance, mood disturbance, and anxiety; G89.29 Other chronic pain; I10 Essential (primary) hypertension; J44.89 Other specified chronic obstructive pulmonary disease; K21.9 Gastro-esophageal reflux disease without esophagitis; Z79.899 Other long term (current) drug therapy; Z87.11 Personal history of peptic ulcer disease; Z98.51 Tubal ligation status
CPT/HCPCS: 96372; 99284; J1885; J2360

== ENCOUNTER 2024-03-20 07:48 | Emergency (ER) | payer MEDICAID ==
[~2024-03-20] VITALS: Ht 160 cm; Wt 48.0 kg
[~2024-03-20 07:48] MED LIST changes: +LIDO700A32 TOP; +TRAM50TA2 PO
[2024-03-20 07:58] VITALS: BP 139/74; PULSE 94; O2SAT 96
[2024-03-20 08:22] VITALS: RESP 16
[2024-03-20] MEDS: ketorolac trometh 30MG/ML vial 30 MG/ML VIAL IM ONE (08:22)
[2024-03-20 08:34] VITALS: TEMP 98.3
== END 2024-03-20 08:37 | disposition home or self-care (01) ==
LOC: ER 07:49
DX: M54.50 Low back pain, unspecified (principal); F12.90 Cannabis use, unspecified, uncomplicated; F15.90 Other stimulant use, unspecified, uncomplicated; G89.29 Other chronic pain; F03.90 Unspecified dementia, unspecified severity, without behavioral disturbance, psychotic disturbance, mood disturbance, and anxiety; I10 Essential (primary) hypertension; K21.9 Gastro-esophageal reflux disease without esophagitis; J44.9 Chronic obstructive pulmonary disease, unspecified; F32.A Depression, unspecified; Z79.899 Other long term (current) drug therapy; Z98.890 Other specified postprocedural states; Z98.51 Tubal ligation status; Z87.11 Personal history of peptic ulcer disease
CPT/HCPCS: 96372; 99283; J1885